=== PATIENT | female | born 1950 | race Caucasian/White ===

== ENCOUNTER 2019-10-13 10:00 | Outpatient (RCR) | payer MEDICARE, OTHER, SELFPAY ==
--- NOTE | 2019-08-09 16:20 | HMH.PTOPEV ---
PT Outpatient Evaluation Rehab PT Outpatient Evaluation Start: 08/09/19 14:32 Freq: Status: Active Protocol: Document 08/09/19 16:07 PHORMERON (Rec: 08/09/19 16:20 PHORNE [id number]) Electronically Signed By Kenan Harding, PT 08/09/19 16:07 Outpatient Therapy Subjective History Subjective History Pt is 68 yowf who presents with c/o 2 falls over the past 2 wks, both at home. 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 She normally uses a straight cane for ambulation, but has now been using RW for safety. She has no reports of dizziness, vertigo, or lightheadedness. She wears glasses which she says need a new prescription. She also has PMH of DM-II and left femur fx with IMN. She c/o difficulty with transfers due to weakness. Chief Complaint Weakness Prior Functional Limitations Walking,Balance Current Functional Limitations Walking,Balance Level of pain today (0-10) 0 Pain scale - at its worst (0-10) 0 Balance Eval Hx of Falls Hx Falls Yes Number in last 6 months 2 Gait/Posture Asssessment General Gait Observation Shuffling Step,Decrease Stride Lngth (R) Hip Observation in Gait Swing Circumducted Ankle/Foot Observation in Gait Stance Decreased Push Off Body Alignment Posture Rigid LE ROM Ankle/Foot Dorsiflexion w/Knee Extended 0 Active Range Motion (degrees) Ankle/Foot Dorsiflexion w/Knee Extended 3 Passive Range (degrees) Rhomberg Feet Together/Eyes open/Stable Surface pass Feet Together/Eyes Closed/Stable Surface pass Feet Together/Eyes open/Unstable Surface fail Feet Together/Eyes Closed/Unstable fail Surface Dynamic Gait Index Test Protocol Gait Level Surface Mild Impairment Query Text: Instructions: Walk at your normal speed from here to the next wilfred (20'). Grading: Wilfred the lowest category that applies. Change in Gait Speed Normal Query Text: Instructions: Begin walking at your normal pace (for 5'), when I tell you go , walk as fast as you can (for 5'). When I tell you slow , walk as slowly as you can (for 5'). Grading: Wilfred the lowest category that applies. Gait w
--- NOTE | 2019-09-15 15:35 | HMH.RHREAS ---
Rehab Reassessment Rehab OP Re-assessment Start: 09/15/19 14:26 Freq: Status: Active Protocol: Document 09/15/19 15:32 GADIEL (Rec: 09/15/19 15:35 PHOMIKAYLA [id number]) Electronically Signed By Kenan Harding, PT 09/15/19 15:32 Rehab Re-assessment Subjective Subjective Pt reports she is feeling a little bit better with her walking. Objective Objective Notes DGI which is 1 pont increase since evaluation. Assessment Progress Assessment Progressing as Expected Assessment Notes Ankle ROM is improving, balance slightly improved, endurance remains low. Patient goals met ST,3,[address] LT,2,3,4,5 Revised Goals none Plan Plan Continue per intial POC. Frequency of Therapy 2x/wk Duration of therapy 8 wks Time and Billing Re-Eval Time 15 Re-Eval Billing Units 1 PHYSICIAN CERTIFICATION: I certify the specified therapy services for Elena Sánchez are required, authorized, and reviewed every 30 days.
== END 2019-10-13 10:05 | disposition home or self-care (01) ==
LOC: PT 10:00
PROVIDERS: Visit Provider Internal Medicine Adolescent Medicine
DX: R27.0 Ataxia, unspecified (principal)
CPT/HCPCS: 97110; 97112; 97140; 97163; 97164

== ENCOUNTER → 2020-08-23 09:37 | Outpatient (CLI) | payer MEDICARE, OTHER, SELFPAY ==
--- NOTE | 2020-08-23 09:56 | XR_ITS ---
PROCEDURE: XR LUMBAR SPINE MIN 4V CLINICAL INDICATION: LOW BACK PAIN AT MULTIPLE SITES COMPARISON: No exams were available for comparison FINDINGS: Fracture of L1 with approximately 40 percent loss of height centrally and anteriorly. This likely is acute to semi acute in age. Suggest clinical correlation for recent trauma and if the patient denies any recent trauma consider follow-up bone scan for additional evaluation. L2 through L5 appear intact. There is moderate disc space narrowing at L5-S1 level. There is minor osteophytic spurring anterior superior border of L4. There is a small ossification sitting between the spinous processes of L3 and L4. There is no pars defect. The SI joints are grossly normal though partially obscured by overlying stool and bowel gas. There is a large amount stool in the cecum and ascending colon. IMPRESSION: Compression fracture of L1 as noted likely posttraumatic but see discussion above. Dictated by: Dr. Kavon Melchor MD 08/23/2020 10:23 Dr. Kavon Melchor MD in [place] 08/23/2020 10:23
== END ==
PROVIDERS: PCP Internal Medicine Adolescent Medicine; Visit Provider Internal Medicine Adolescent Medicine
DX: M54.5 Low back pain (principal)
CPT/HCPCS: 72110

== ENCOUNTER → 2020-08-28 08:41 | Outpatient (POV) | payer MEDICARE, OTHER, SELFPAY ==
[2020-08-28 08:47] VITALS: BP 138/77; PULSE 74; RESP 18; TEMP 36.6; O2SAT 98; BMI 29.5
--- NOTE | 2020-08-28 09:30 | HMH.PMCON ---
Assessment and Plan (1) Compression fracture of L1 lumbar vertebra Status: Acute Category: Medical Code(s): S32.010A - Wedge compression fracture of first lumbar vertebra, initial encounter for closed fracture - Assessment and plan all Dx Assessment and Plan for all problems:: I did discuss kyphoplasty with the patient and her however they would like to take him more conservative approach at this time. We will set up an T12-L1 epidural steroid injection. Patient's not on any anticoagulation therapy. Patient will be braced today. We will also get a DEXA scan. I did discuss with them if they would like to move forward with kyphoplasty that is an option. Follow-up with her after her injection reassess her symptoms at the time she has been instructed to call the office if she has any issues prior to her next appointment. Dr. Salcedo has reviewed this note and agrees with this plan of care. This note was dictated using voice recognition software and may contain errors or omissions HPI - Data of Consult Consult date: 08/28/20 Requesting Physician: Skylar Man APRN Primary Care Provider: Cleve Pichardo MD - Consult Narrative Reason for consult: Back pain History of present illness: Ms. Sánchez is a 69 year old female in today for consultation in regard to her low back pain. Patient has an L1 compression fracture. This is on x-ray. Age is undetermined. Patient does not believe she can tolerate an MRI right now we discussed a kyphoplasty however her and her would like to move forward on a more conservative care plan. We discussed injection therapy and bracing therapy they would like to move forward with this prior to deciding if they would like to get a kyphoplasty. She rates her pain today a 5 out of 10. Any kind increased to but increases pain will rest decreases pain. She does not have any numbness or tingling she has very focal pain in her low back. CC: Skylar Man APRN [facility] History I have reviewed the patient's past medical history: Yes Medical History: Reports:: Aneurysm, Hyperlipidemia, Hypertension, Peripheral Artery Disease Denies:: Cancer, Diabetes Mellitus Type 1, Diabetes Mellitus Type 2, MRSA *Have you ever received a pneumonia vaccine?: No *Have you received a flu vaccine this season?: No Other Medical History: Reports: Arthritis Other Surgeries: Yes: Hysterectomy-Total Amputation: No Fractures: Yes - *Social History Smoking Status: Never smoker Alcohol Intake: never *Occupational Status:: retired Housing: house Household Members: other *Travel in the last 8 weeks: None Family Hx:: Unable to obtain Review of Systems - Review of Systems ROS General: no recent weight change, no fever, no sleep disturbances Respiratory: no cough, no shortness of air, no recurring pulmonary infections Cardiovascular/Peripheral Vascular: No chest pain, No palpitations, no edema, no shortness of breath. Gastrointestinal: no new onset incontinence, normal bowel movements reported Genitourinary: no new onset incontinence Musculoskeletal: Back pain Psychiatric: normal mood/ affect Neurological: [denies new onset weakness in extremities], [denies new onset balance issues] Meds Allergies Allergy/AdvReac Type Severity Reaction Status Date / Time From COMPAZINE Allergy Severe SEVERE Uncoded 10/14/17 14:39 MUSCLE SPASMS THORAZINE Allergy Severe SEVERE Uncoded 10/14/17 14:39 MUSCLE SPASMS Objective Vital signs: Temp Pulse Resp BP Pulse Ox 97.8 F 74 18 138/77 98 08/28/20 08:47 08/28/20 08:47 08/28/20 08:47 08/28/20 08:47 08/28/20 08:47 Narrative: Physical Exam General: Alert and oriented x3, no acute distress, pleasant and cooperative, [on room air] Lungs: Resps E/U, Symmetrical chest expansion, Eyes: PERRL Musculoskeletal: Flexion and extension of lumbar spine somewhat guarded secondary to pain, deep tendon reflexes
== END ==
PROVIDERS: PCP Internal Medicine Adolescent Medicine; Visit Provider Clinical Nurse Specialist Family Health
DX: S32.010A Wedge compression fracture of first lumbar vertebra, initial encounter for closed fracture (principal)
CPT/HCPCS: 99202

== ENCOUNTER 2020-09-01 09:27 | Day surgery (SDC) | payer MEDICARE, OTHER, SELFPAY ==
[2020-09-01 09:37] VITALS: BP 145/78; PULSE 88; RESP 18; TEMP 36.4; O2SAT 97; BMI 30.5
--- NOTE | 2020-09-01 10:22 | HMH.PMPROC ---
- Procedure Date: 09/01/20 Time: 10:22 Anesthesiologist:: Omega Salcedo MD Complications:: None Pre-procedure Diagnosis:: Degenerative disc disease of the lumbar spine with lumbar radiculopathy symptoms. L1 compression fracture Post-procedure Diagnosis:: Same Indications for Procedure:: This patient is a pleasant 69-year-old white female who we are treating for low back pain with a L1 compression fracture. She also has degenerative changes with lumbar spine. We will do a lumbar epidural steroid injection today to help her with her pain symptoms. We will also evaluate her to see if she needs kyphoplasty in the future. We will also follow-up on her DEXA scan. Procedure Details:: Lumbar epidural steroid injection under fluoroscopy Informed consent was obtained and the risk and benefits of the procedure was explained to the patient. The patient was taken to the procedure room. The patient was placed prone on the procedure table. The patient was prepped and draped in sterile fashion. C-arm fluoroscopy was used to view the lumbar spine. Skin and subcutaneous tissues were anesthetized using lidocaine. I placed an 18-gauge epidural needle and advanced into the L1-L2 interspace using fluoroscopic guidance and [id number] to air. After confirmation of needle placement in the epidural space with dye I injected 2 mL of lidocaine 1.5% with Depo-Medrol 80 mg. Patient tolerated the procedure well with no complications. Plan and Disposition:: We will follow-up with her in 2 weeks. Will reevaluate her symptoms at that time. We will follow-up on her DEXA scan to see if she is a candidate for L1 kyphoplasty.
[2020-09-01 10:28] VITALS: BP 133/78; PULSE 85
[2020-09-01 10:29] VITALS: BP 138/78; PULSE 85; RESP 18; O2SAT 98
[2020-09-01 10:43] VITALS: BP 139/78; PULSE 82; RESP 18; O2SAT 97
[2020-09-11 09:59] LABS: POC Glucose,Bedside 66 (70-110)
== END 2020-09-01 10:44 | disposition home or self-care (01) ==
LOC: SC.PAINP 09:28
PROVIDERS: PCP Internal Medicine Adolescent Medicine; Visit Provider Anesthesiology
DX: M51.16 Intervertebral disc disorders with radiculopathy, lumbar region (principal); S32.010A Wedge compression fracture of first lumbar vertebra, initial encounter for closed fracture; I10 Essential (primary) hypertension; E03.9 Hypothyroidism, unspecified; Z88.8 Allergy status to other drugs, medicaments and biological substances; Z79.899 Other long term (current) drug therapy
CPT/HCPCS: 62323; 82962; J1040; Q9966

== ENCOUNTER → 2020-09-06 12:56 | Outpatient (CLI) | payer MEDICARE, OTHER, SELFPAY ==
--- NOTE | 2020-09-06 12:59 | XR_ITS ---
PROCEDURE: XR DEXA AXIAL SKELETON CLINICAL HISTORY: OSTEOPOROSIS, BACK PAIN COMPARISON: No exams were available for comparison FINDINGS: The right hip BMD is 0.645 with a T-score of -1.8. The left forearm BMD is 0.276 with a T-score of -7.0. The lumbar spine BMD is 0.810 with a T-score of -2.2. IMPRESSION: This patient is considered osteoporotic according to the World Health Organization criteria. Fracture risk is high. Treatment is advised. Based on these results a follow-up exam is recommended in 1 year. Dictated by: Vijay Alexander MD 09/07/2020 06:21 Vijay Alexander MD in [place] 09/07/2020 06:21
== END ==
PROVIDERS: PCP Internal Medicine Adolescent Medicine; Visit Provider Clinical Nurse Specialist Family Health
DX: M81.0 Age-related osteoporosis without current pathological fracture (principal); M54.5 Low back pain
CPT/HCPCS: 77080

== ENCOUNTER → 2020-09-08 08:08 | Outpatient (CLI) | payer MEDICARE, OTHER, SELFPAY ==
--- NOTE | 2020-09-08 08:16 | CT_ITS ---
PROCEDURE: CT LUMBAR SPINE WO CON CLINICAL HISTORY: BACK PAIN COMPARISON: No exams were available for comparison TECHNIQUE: Axial images obtained with sagittal and coronal reformats. All CT scans at the facility use one or more dose reduction, viz: automated exposure control, ma/kV adjustment per patient size (including targeted exams where dose is matched to indication, i.e. head), or iterative reconstruction technique. FINDINGS: There is generalized osteopenia. There is a comminuted compression fracture of L1 with approximately 50-60 percent loss of height centrally and anteriorly. There is broad-based retropulsion of the fracture compromising the spinal canal centrally and the right side by approximately 50 percent AP diameter. There is mild gibbus angulation of the curvature of the thoracolumbar spine at this level. Prominent anterior osteophytic spurring at the L2-3 and L3-4 levels. There is moderate disc space narrowing at the L5-S1 level. The transverse processes appear intact. The SI joints are normal. IMPRESSION: Semi acute comminuted compression fracture of L1 with retropulsion compromising the AP diameter of the spinal canal at the L1 level resulting in minor kyphotic curvature of the thoracolumbar junction at this level. Dictated by: Dr. Kavon eMlchor MD 09/08/2020 11:06 Dr. Kavon Melchor MD in [place] 09/08/2020 11:06
== END ==
PROVIDERS: PCP Internal Medicine Adolescent Medicine; Visit Provider Anesthesiology
DX: M54.5 Low back pain (principal)
CPT/HCPCS: 72131

== ENCOUNTER → 2020-09-15 09:42 | Outpatient (POV) | payer MEDICARE, OTHER, SELFPAY ==
[2020-09-15 10:12] VITALS: BP 155/76; PULSE 78; RESP 20; TEMP 36.6; O2SAT 98; BMI 30.6
--- NOTE | 2020-09-15 11:35 | P.CONS_ITS ---
[facility] Pain Management SOAP Note Subjective:: This patient is a pleasant 69-year-old white female who we have been treating for low back pain with compression fracture of the L1 vertebral body. She did have lumbar epidural steroid injection which gave her minimal benefit of her back pain. We did get a CT scan of the lumbar spine which shows L1 comminuted compression fracture with approximately 50 to 60% loss of height. She also does have a DEXA scan which shows osteoporosis which is high risk of fracture. Since she did not get much benefit from the lumbar epidural steroid injection I do believe that she is a candidate for L1 kyphoplasty. She has failed all conservative measures including injections and bracing. She has significant pa in from this acute L1 compression fracture. Objective:: Alert and oriented x3 no acute distress. Patient is tender over lower lumbar spine over the L1 vertebral body. Motor strength of the lower extremities is 5/5. There is no gross sensory deficit. Assessment:: Acute L1 compression fracture with increasing back pain. Plan:: We will plan on L1 kyphoplasty on October 06. She is to continue with her brace in between now and then. [facility] History Medical History: Reports:: Aneurysm, Diabetes Mellitus Type 1, Hyperlipidemia, Hypertension, Peripheral Artery Disease Denies:: Cancer, Diabetes Mellitus Type 2, MRSA, Seizures *Have you ever received a pneumonia vaccine?: Yes *Have you received a flu vaccine this season?: Yes Other Medical History: Reports: Arthritis. Denies: Blood Transfusion Reaction Other Surgeries: Yes: Hysterectomy-Total, Other (CVA stent) Amputation: No Fractures: Yes - *Social History Smoking Status: Never smoker Alcohol Intake: never *Occupational Status:: retired Housing: house Household Members: spouse *Travel in the last 8 weeks: None Family Hx:: Unable to obtain
== END ==
PROVIDERS: PCP Internal Medicine Adolescent Medicine; Visit Provider Anesthesiology
DX: S32.010A Wedge compression fracture of first lumbar vertebra, initial encounter for closed fracture; M81.0 Age-related osteoporosis without current pathological fracture
CPT/HCPCS: 99212

== ENCOUNTER → 2020-10-05 09:22 | Outpatient (CLI) | payer MEDICARE, OTHER, SELFPAY ==
[2020-10-05 09:57] LABS: Basophils # 0.3 K/mm3 (0-0.2); Basophils % 2.9 % (0.1-2.0); Eosinophils # 0.2 K/mm3 (0.0-0.4); Eosinophils % 1.6 % (0.1-12.0); Hematocrit 57.7 % (37.0-47.0); Hemoglobin 17.1 g/dL (12.2-16.2); Lymphocytes # 1.8 K/mm3 (0.7-4.5); Lymphocytes % 17.7 % (10-50); Mean Corpuscular HGB Conc 29.6 g/dL (31.8-35.4); Mean Corpuscular Hemoglobin 29.1 pg (27.0-31.2); Mean Corpuscular Volume 98.4 fl (81-99); Mean Platelet Volume 13.2 fl (7.4-10.4); Monocytes # 0.6 K/mm3 (0.1-1.0); Monocytes % 6.3 % (1.7-9.3); Neutrophils # 7.4 K/mm3 (1.8-7.8); Neutrophils % 74.5 % (37.0-80.0); Platelet Count 342 K/mm3 (142-424); Red Blood Count 5.87 M/mm3 (4.20-5.40); Red Cell Distribution Width 16.9 % (11.5-17.5); White Blood Count 9.9 K/mm3 (4.8-10.8)
[2020-10-05 10:38] LABS: Chloride 100 mmol/L (98-107); Potassium 4.3 mmoL/L (3.5-5.1); Sodium 139 mmol/L (136-145)
[2020-10-05 10:41] LABS: Anion Gap 12.3 mEq/L (5-15); Blood Urea Nitrogen 12 mg/dl (7-17); Calcium 9.9 mg/dl (8.4-10.2); Carbon Dioxide 31 mmol/L (22.0-30.0); Estimated Glomerular Filt Rate 71 ml/min (>60); GFR (African American) 86 ML/MIN (>60); Glucose 65 mg/dl (74-100)
[2020-10-05 10:46] LABS: Coronavirus 19 IgG Antibody Negative (Negative); Coronavirus 19 IgM Antibody Negative (Negative)
== END ==
PROVIDERS: Visit Provider Anesthesiology
DX: Z01.818 Encounter for other preprocedural examination (principal); Z03.818 Encounter for observation for suspected exposure to other biological agents ruled out; M48.56XA Collapsed vertebra, not elsewhere classified, lumbar region, initial encounter for fracture
CPT/HCPCS: 36415; 80048; 85025; 86328

== ENCOUNTER 2020-10-06 12:31 | Day surgery (SDC) | payer MEDICARE, OTHER, SELFPAY ==
[2020-10-04 12:28] VITALS: BMI 30.5
--- NOTE | 2020-10-06 14:03 | SUR.PREOP ---
pt. case was cancelled due to pt. eating at 1130. Case will be rescheduled for a later date per Dr. Salcedo.
== END 2020-10-06 14:03 ==
LOC: OR 12:32
PROVIDERS: PCP Internal Medicine Adolescent Medicine; Visit Provider Anesthesiology
DX: Z53.8 Procedure and treatment not carried out for other reasons (principal); S32.010A Wedge compression fracture of first lumbar vertebra, initial encounter for closed fracture
CPT/HCPCS: 22514

== ENCOUNTER 2020-10-11 05:49 | Day surgery (SDC) | payer MEDICARE, OTHER, SELFPAY ==
[2020-10-11] VITALS (7 sets, daily range): BP systolic 126–197; BP diastolic 58–86; PULSE 55–73; RESP 18; TEMP 6.1–43; O2SAT 95–99; BMI 28.7
[2020-10-11 07:10] LABS: Coronavirus 19 IgG Antibody Negative (Negative); Coronavirus 19 IgM Antibody Negative (Negative)
--- NOTE | 2020-10-11 07:23 | HMH.ANESCL ---
[facility] Anesthesia Checklist - Structural Data Admitted From: Home Planned Operative Procedure/s: kyphoplasty Consent for Planned Operative Procedure(s) Verified: Yes - Additional verifications Anesthesia Reactions: No Hx Blood Transfusions: No Blood Transfusion Reaction: No - Airway Assessment C-Spine Mobility Assessed: Yes TMJ Mobility Assessed: Yes Dentition: Poor Dentition - Neurological Assessment Level of Consciousness: Awake, Alert, Appropriate - Anesthesia Plan Anesthesia Risk discussed: Yes Anesthesia Plan: Verified ASA Class: III Anesthesia Type: MAC [facility] History I have reviewed the patient's past medical history: Yes Medical History: Reports:: Aneurysm, Diabetes Mellitus Type 2, Hyperlipidemia, Hypertension, Peripheral Artery Disease Denies:: Cancer, Diabetes Mellitus Type 1, Internal Pacemaker, MRSA, Seizures *Have you ever received a pneumonia vaccine?: Yes *Have you received a flu vaccine this season?: Yes Other Medical History: Reports: Arthritis. Denies: Blood Transfusion Reaction Anesthesia experience/problems:: none Laterality Cases: Bilateral: Cataract Other Surgeries: Yes: Hysterectomy-Total, Other (CVA stent). No: Pacemaker Amputation: No Fractures: Yes - *Social History Last grade of school completed: 11th or 12th Smoking Status: Never smoker Alcohol Intake: never Substance Use Type: denies use *Occupational Status:: retired Housing: house Household Members: spouse *Travel in the last 8 weeks: None Family Hx:: Unable to obtain
[2020-10-11 07:27] LABS: POC Glucose,Bedside 109 (70-110)
--- NOTE | 2020-10-11 09:07 | HMH.OPNOTE ---
Date of procedure: 10/11/20 Pre-op Diagnosis:: L1 compression fracture acute Post-op Diagnosis:: Same Procedure performed:: L1 kyphoplasty Surgeon:: Omega Salcedo MD [facility] HELPER:: Rafa Little Anesthesia: MAC Estimated blood loss (mL): 1 Clinical Note:: This patient is a pleasant 69-year-old white female who we have been treating for low back pain with a acute compression fracture of the L1 vertebral body. She is approximately 50 to 60% loss of height anteriorly. She also has a DEXA scan which shows osteoporosis she has failed all conservative measures including injections and bracing. She presents for kyphoplasty to the L1 vertebral body today. Operative findings:: None Operative note:: Informed consent was obtained and risks and benefits of the procedure was explained to the patient. Patient was taken to the OR and was placed prone on the procedure table. The patient was prepped and draped in sterile fashion. I used 2 C arms for AP and lateral view of the L1 vertebral body. The skin and subcutaneous tissues were anesthetized using lidocaine. Bone access trochars were placed through the LEFT and RIGHT pedicle and advanced into the vertebral body. After accessing the vertebral body a balloon was inserted first on the LEFT side followed by the RIGHT side with approximately 3 mL of contrast placed in each balloon with good insufflation. After adequate spread of contrast through the balloon, the balloons were deflated and cement was introduced first on the LEFT side with placement of approximately 3-1/2 mL of cement with good spread throughout the vertebral body and then on the RIGHT side was approximately 3 1/2 mL cement with good spread throughout the vertebral body. There was no extrusion of cement through the lateral hurtado, anterior or posterior hurtado. Also no extrusion through superior or inferior hurtado. The bone access trochars were removed and dressing was placed. The patient was taken back to recovery in stable condition. She had good resolution of her back pain 5 minutes after the procedure. She tolerated the procedure well with no complications and was discharged home neurologically intact. Plan and disposition we will follow-up with her in 1 week. Will reevaluate symptoms at that time. She is to continue wearing her brace. Condition: stable Disposition: PACU Complications:: None
== END 2020-10-11 10:05 | disposition home or self-care (01) ==
LOC: OR 05:51
PROVIDERS: PCP Internal Medicine Adolescent Medicine; Visit Provider Anesthesiology
PROC: (CPT 22514; principal; 2020-10-11 07:30)
DX: S32.010A Wedge compression fracture of first lumbar vertebra, initial encounter for closed fracture (principal); E11.9 Type 2 diabetes mellitus without complications; E78.5 Hyperlipidemia, unspecified; I10 Essential (primary) hypertension; Z86.79 Personal history of other diseases of the circulatory system; M19.90 Unspecified osteoarthritis, unspecified site; E03.9 Hypothyroidism, unspecified; M81.0 Age-related osteoporosis without current pathological fracture; Z88.8 Allergy status to other drugs, medicaments and biological substances
CPT/HCPCS: 22514; 82962; 86328; 96374; J3370; Q9966

== ENCOUNTER → 2020-10-23 09:33 | Outpatient (POV) | payer MEDICARE, OTHER, SELFPAY ==
--- NOTE | 2020-10-23 10:03 | HMH.PAINSOAP ---
[facility] Pain Management SOAP Note Subjective:: Patient is a pleasant 70-year-old white female who we are treating for low back pain. Patient has had a kyphoplasty recently. She states her pain has been worse since then she rates it a 10 out of 10. She is difficulty standing and walking. She had epidural injections with no relief. Patient and I had a long discussion about intrathecal therapy. He would like to move forward with this. I discussed the process along with realistic goals. Patient understands. Patient currently is not on any narcotic medications. ROS General: no recent weight change, no fever, no sleep disturbances Respiratory: no cough, no shortness of air, no recurring pulmonary infections Cardiovascular/Peripheral Vascular: No chest pain, No palpitations, no edema, no shortness of breath. Gastrointestinal: no new onset incontinence, normal bowel movements reported Genitourinary: no new onset incontinence Musculoskeletal: Back pain, leg pain Psychiatric: normal mood/ affect Neurological: [denies new onset weakness in extremities], [denies new onset balance issues] Objective:: Physical Exam General: Alert and oriented x3, no acute distress, pleasant and cooperative, [on room air] Lungs: Resps E/U, Symmetrical chest expansion, Eyes: PERRL Musculoskeletal: Flexion and extension of lumbar spine somewhat guarded secondary to pain, deep tendon reflexes normal, strength in upper and lower extremities [5/5], [abnormal gait noted] Neurological: speech clear, 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 We also discussed psychological evaluation. She is understanding of this. She also understands that realistically pain-free is not an option we discussed 50% reduction in symptoms. Patient's been instructed to call the office if she has any issues prior to next appointment. Dr. Salcedo has reviewed this note and agrees with this plan of care. This note was dictated using voice recognition software and may contain errors or omissions [facility] History I have reviewed the patient's past medical history: Yes Medical History: Reports:: Aneurysm, Diabetes Mellitus Type 2, Hyperlipidemia, Hypertension, Peripheral Artery Disease Denies:: Cancer, Diabetes Mellitus Type 1, Internal Pacemaker, MRSA, Seizures *Have you ever received a pneumonia vaccine?: Yes *Have you received a flu vaccine this season?: Yes Other Medical History: Reports: Arthritis. Denies: Blood Transfusion Reaction Other Surgeries: Yes: Hysterectomy-Total, Other (CVA stent). No: Pacemaker Amputation: No Fractures: Yes - *Social History Smoking Status: Never smoker Alcohol Intake: never Substance Use Type: denies use *Occupational Status:: retired Housing: house Household Members: spouse *Travel in the last 8 weeks: None Family Hx:: Unable to obtain
[2020-10-23 10:08] VITALS: BP 125/78; PULSE 74; RESP 18; TEMP 36.3; O2SAT 98; BMI 30.5
== END ==
PROVIDERS: PCP Internal Medicine Adolescent Medicine; Visit Provider Clinical Nurse Specialist Family Health
DX: M51.16 Intervertebral disc disorders with radiculopathy, lumbar region (principal); Z98.890 Other specified postprocedural states
CPT/HCPCS: 99212

== ENCOUNTER → 2020-10-26 10:32 | Outpatient (POV) | payer MEDICARE, OTHER, SELFPAY ==
--- NOTE | 2020-10-26 11:12 | HMH.PAINSOAP ---
[facility] Pain Management SOAP Note Subjective:: Patient is a 70-year-old white female who presents today for follow-up. She has been treated for chronic back pain. She did have a kyphoplasty earlier this month. She says her pain is currently a 4 out of 10. She is continuing to have pain, however, in her left low back area with radiation into her left buttock and left groin. She is accompanied by her son today who provides most of the information for the patient today. Patient has been taking [id number] Tylenol. She does have a history of an aneurysm and is unable to take anti-inflammatories. She is asking for Tylenol 3 today to see if this gives her relief. They did not want to proceed with any type of injective therapy at this time. She has significant pain to the point that she is unable to stand for very long, as the pain in her low back does radiate into her left hip and groin. Is tender over her left SI joint. Review of Systems General: No recent weight changes, no fever, no sleep disturbances Respiratory: No cough, no shortness of air, no recurring pulmonary infections Cardiovascular/peripheral vascular: No chest pain, no palpitations, no edema, no shortness of breath Gastrointestinal: No new onset incontinence, normal bowel movements reported Genitourinary: No new onset incontinence Musculoskeletal: Left low back pain with radiation into left hip and groin Psychiatric: Normal mood/affect Neurological: [Denies weakness in extremities], [denies balance issues] Objective:: Physical exam General: Alert and oriented x3, no acute distress, pleasant and cooperative, [on room air] Lungs: Respirations even and unlabored, symmetrical chest expansion Eyes: PERRL Musculoskeletal: Flexion and extension of lumbar spine somewhat guarded secondary to pain, deep tendon reflexes normal, strength in upper and lower extremities [5/5], [abnormal gait noted], positive Sabi's test, positive compression test, positive distraction test Neurological: Speech clear, green end worker 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 We will order the patient Tylenol 3 1 tablet p.o. 2 times daily. We will see her back in 2 weeks to see if this gives her any relief. Risks and benefits of the medication have been explained to the patient. She has been instructed to contact clinic she has an concerns for next morning. The patient and I specifically discussed risk factors for COVID19. These risks include, but are not limited to age greater than 60, heart or lung disease, diabetes, immunosuppression, and travel. We also discussed NSAIDs may worsen COVID19 infection or symptoms. Patient should not use NSAIDs to treat COVID19 signs or symptoms. Patient was also informed that any type of corticosteroid of any form (oral or injection) will decrease the patient's immune system response and may increase the likelihood of COVID19 infection and symptoms[address] Dr. Salcedo has reviewed this note and agrees with this plan of care. This note was dictated using voice recognition software and make contain errors or omissions. [facility] History I have reviewed the patient's past medical history: Yes Medical History: Reports:: Aneurysm, Diabetes Mellitus Type 2, Hyperlipidemia, Hypertension, Peripheral Artery Disease Denies:: Cancer, Diabetes Mellitus Type 1, Internal Pacemaker, MRSA, Seizures *Have you ever received a pneumonia vaccine?: Yes *Have you received a flu vaccine this season?: Yes Other Medical History: Reports: Arthritis. Denies: Blood Transfusion Reaction Other Surgeries: Yes: Hysterectomy-Total, Other (CVA stent). No: Pacemaker Amputation: No Fractures: Yes - *Social History Smoking Status: Never smoker Alcohol Intake: never Substance Use Type: de
[2020-10-26 12:44] VITALS: BP 140/77; PULSE 77; RESP 18; O2SAT 98; BMI 30.5
== END ==
PROVIDERS: Visit Provider Clinical Nurse Specialist Family Health
DX: M51.16 Intervertebral disc disorders with radiculopathy, lumbar region (principal); M46.1 Sacroiliitis, not elsewhere classified; S32.010A Wedge compression fracture of first lumbar vertebra, initial encounter for closed fracture; Z98.890 Other specified postprocedural states
CPT/HCPCS: 99212

== ENCOUNTER → 2020-11-09 08:32 | Outpatient (POV) | payer MEDICARE, OTHER, SELFPAY ==
--- NOTE | 2020-11-09 09:03 | HMH.PAINSOAP ---
[facility] Pain Management SOAP Note Subjective:: Patient is a pleasant 70-year-old white female who presents today for follow-up. She is been treated for chronic back pain. Patient had a kyphoplasty earlier. Overall doing much better rating her pain a 4 out of 10. Patient would like to just follow-up on an as-needed basis. ROS General: no recent weight change, no fever, no sleep disturbances Respiratory: no cough, no shortness of air, no recurring pulmonary infections Cardiovascular/Peripheral Vascular: No chest pain, No palpitations, no edema, no shortness of breath. Gastrointestinal: no new onset incontinence, normal bowel movements reported Genitourinary: no new onset incontinence Musculoskeletal: Back pain, leg pain Psychiatric: normal mood/ affect Neurological: [denies new onset weakness in extremities], [denies new onset balance issues] Objective:: Physical Exam General: Alert and oriented x3, no acute distress, pleasant and cooperative, [on room air] Lungs: Resps E/U, Symmetrical chest expansion, Eyes: PERRL Musculoskeletal: Flexion and extension of lumbar spine somewhat guarded secondary to pain, deep tendon reflexes normal, strength in upper and lower extremities [5/5], [abnormal gait noted] Neurological: speech clear, medical aide equal, no gross sensory deficits Assessment:: Degenerative disc disease lumbar spine with lumbar radiculopathy symptoms, compression fracture status post kyphoplasty Plan:: We will follow up with the patient on an as-needed basis. Patient's been instructed to call the office if she has any issues prior to next appointment. Dr. Salcedo has reviewed this note and agrees with this plan of care. This note was dictated using voice recognition software and may contain errors or omissions [facility] History I have reviewed the patient's past medical history: Yes Medical History: Reports:: Aneurysm, Diabetes Mellitus Type 2, Hyperlipidemia, Hypertension, Peripheral Artery Disease Denies:: Cancer, Diabetes Mellitus Type 1, Internal Pacemaker, MRSA, Seizures *Have you ever received a pneumonia vaccine?: Yes *Have you received a flu vaccine this season?: Yes Other Medical History: Reports: Arthritis. Denies: Blood Transfusion Reaction Other Surgeries: Yes: Hysterectomy-Total, Other (CVA stent). No: Pacemaker Amputation: No Fractures: Yes - *Social History Smoking Status: Never smoker Alcohol Intake: never Substance Use Type: denies use *Occupational Status:: other Housing: house Household Members: spouse *Travel in the last 8 weeks: None Family Hx:: Unable to obtain
[2020-11-09 09:25] VITALS: BP 142/71; PULSE 84; RESP 18; TEMP 36.6; O2SAT 98; BMI 30.5
== END ==
PROVIDERS: PCP Internal Medicine Adolescent Medicine; Visit Provider Clinical Nurse Specialist Family Health
DX: M51.16 Intervertebral disc disorders with radiculopathy, lumbar region (principal); S32.010A Wedge compression fracture of first lumbar vertebra, initial encounter for closed fracture; Z98.890 Other specified postprocedural states
CPT/HCPCS: 99212; G0463

== ENCOUNTER → 2021-02-14 10:31 | Outpatient (CLI) | payer MEDICARE, OTHER, SELFPAY ==
[2021-02-14 12:17] LABS: Alanine Aminotransferase 18 U/L (12-78); Albumin Level 3.4 g/dl (3.5-5.0); Albumin/Globulin Ratio 1.1 (1.1-1.8); Alkaline Phosphatase 178 U/L (38-126); Anion Gap 6.4 mEq/L (5-15); Aspartate Amino Transferase 30 U/L (14-36); Bilirubin,Total 0.5 mg/dl (0.2-1.3); Blood Urea Nitrogen 15 mg/dl (7-17); Calcium 9.2 mg/dl (8.4-10.2); Carbon Dioxide 29 mmol/L (22.0-30.0); Chloride 105 mmol/L (98-107); Estimated Glomerular Filt Rate 82 ml/min (>60); GFR (African American) 100 ML/MIN (>60); Globulin 3.1 g/dL (1.3-3.2); Glucose 56 mg/dl (74-100); Potassium 4.4 mmoL/L (3.5-5.1); Sodium 136 mmol/L (136-145); Total Protein,Serum 6.5 g/dl (6.3-8.2)
[2021-02-14 12:30] LABS: Hemoglobin A1C 5.1 % (4.0-6.0)
[2021-02-16 08:53] LABS: Thyroid Stimulating Hormone 3.94 uIU/mL (0.465-4.68)
== END ==
PROVIDERS: Visit Provider Internal Medicine Adolescent Medicine
DX: E11.9 Type 2 diabetes mellitus without complications (principal); E03.9 Hypothyroidism, unspecified; R19.7 Diarrhea, unspecified; Z79.4 Long term (current) use of insulin
CPT/HCPCS: 36415; 80053; 83036; 83735; 84436; 84443; 84479

== ENCOUNTER → 2021-02-15 09:53 | Outpatient (CLI) | payer MEDICARE, OTHER, SELFPAY ==
[2021-02-15 09:57] LABS: Adenovirus F 40/41, stool Not Detected (NotDetected); Astrovirus Not Detected (NotDetected); Campylobacter Not Detected (NotDetected); Cryptosporidium Not Detected (NotDetected); Cyclospora Cayetanesis Not Detected (NotDetected); Entamoeba histolytica Not Detected (NotDetected); Enteroaggregative E coli Not Detected (NotDetected); Enteropathogenic E coli Not Detected (NotDetected); Enterotoxigenic E coli Not Detected (NotDetected); Giardia lamblia Not Detected (NotDetected); Norovirus Not Detected (NotDetected); Plesimonas Shigalloides, PCR Not Detected (NotDetected); Rotavirus A Not Detected (NotDetected); Salmonella, PCR Not Detected (NotDetected); Sapovirus Not Detected (NotDetected); Shiga-like toxin E coli Not Detected (NotDetected); Shigella Enterovasive E coli Not Detected (NotDetected); Vibrio Cholerae Not Detected (NotDetected); Vibrio, PCR Not Detected (NotDetected); Yersinia Entercolitica, PCR Not Detected (NotDetected)
[2021-02-15 17:43] LABS: Clostridium Difficile A/B, PCR Detected (NotDetected)
== END ==
PROVIDERS: Visit Provider Internal Medicine Adolescent Medicine
DX: R19.7 Diarrhea, unspecified (principal); A04.72 Enterocolitis due to Clostridium difficile, not specified as recurrent
CPT/HCPCS: 87506

== ENCOUNTER → 2021-05-21 11:03 | Outpatient (CLI) | payer MEDICARE, OTHER, SELFPAY ==
[2021-05-21 11:44] LABS: Basophils # 0.1 K/mm3 (0-0.2); Basophils % 0.6 % (0.1-2.0); Eosinophils # 0.2 K/mm3 (0.0-0.4); Eosinophils % 2.2 % (0.1-12.0); Hematocrit 49.1 % (37.0-47.0); Lymphocytes # 1.5 K/mm3 (0.7-4.5); Lymphocytes % 16.6 % (10-50); Mean Corpuscular HGB Conc 32.6 g/dL (31.8-35.4); Mean Corpuscular Hemoglobin 28.4 pg (27.0-31.2); Mean Corpuscular Volume 87.3 fl (81-99); Mean Platelet Volume 7.6 fl (7.4-10.4); Monocytes # 0.5 K/mm3 (0.1-1.0); Monocytes % 5.4 % (1.7-9.3); Neutrophils % 75.3 % (37.0-80.0); Platelet Count 292 K/mm3 (142-424); Red Blood Count 5.63 M/mm3 (4.20-5.40); Red Cell Distribution Width 13.6 % (11.5-17.5); White Blood Count 9.3 K/mm3 (4.8-10.8)
[2021-05-21 12:58] LABS: Chloride 101 mmol/L (98-107)
[2021-05-21 12:59] LABS: Potassium 4.4 mmoL/L (3.5-5.1); Sodium 139 mmol/L (136-145)
[2021-05-21 13:01] LABS: Alanine Aminotransferase 14 U/L (12-78); Anion Gap 13.4 mEq/L (5-15); Aspartate Amino Transferase 23 U/L (14-36); Blood Urea Nitrogen 19 mg/dl (7-17); Carbon Dioxide 29 mmol/L (22.0-30.0); Estimated Glomerular Filt Rate 82 ml/min (>60); GFR (African American) 100 ML/MIN (>60)
[2021-05-21 13:02] LABS: Albumin Level 4.5 g/dl (3.5-5.0); Albumin/Globulin Ratio 1.4 (1.1-1.8); Alkaline Phosphatase 158 U/L (38-126); Bilirubin,Total 0.6 mg/dl (0.2-1.3); Calcium 9.6 mg/dl (8.4-10.2); Chol/HDL Ratio 3.9 (1-3.5); Cholesterol 138 mg/dl (140-200); Globulin 3.2 g/dL (1.3-3.2); Glucose 122 mg/dl (74-100); HDL Cholesterol 35 mg/dl (40-60); Total Protein,Serum 7.7 g/dl (6.3-8.2); Triglycerides 100 mg/dl (30-150); VLDL Cholesterol 20 mg/dL (0-40)
[2021-05-21 13:14] LABS: Direct LDL Cholesterol 76.21 mg/dL (100-129)
[2021-05-21 13:34] LABS: Thyroid Stimulating Hormone 2.61 uIU/mL (0.465-4.68)
== END ==
PROVIDERS: Visit Provider Internal Medicine Adolescent Medicine
DX: E11.9 Type 2 diabetes mellitus without complications (principal); E03.9 Hypothyroidism, unspecified; E78.5 Hyperlipidemia, unspecified; Z79.4 Long term (current) use of insulin
CPT/HCPCS: 36415; 80053; 80061; 83036; 84443; 85025

== ENCOUNTER → 2021-08-22 11:10 | Outpatient (CLI) | payer MEDICARE, OTHER, SELFPAY ==
[2021-08-22 11:26] LABS: Basophils # 0.1 K/mm3 (0-0.2); Basophils % 0.7 % (0.1-2.0); Eosinophils # 0.2 K/mm3 (0.0-0.4); Eosinophils % 2.8 % (0.1-12.0); Hematocrit 52.7 % (37.0-47.0); Lymphocytes # 1.4 K/mm3 (0.7-4.5); Lymphocytes % 16.4 % (10-50); Mean Corpuscular HGB Conc 32.3 g/dL (31.8-35.4); Mean Corpuscular Hemoglobin 29.7 pg (27.0-31.2); Mean Platelet Volume 7.6 fl (7.4-10.4); Monocytes # 0.5 K/mm3 (0.1-1.0); Monocytes % 5.5 % (1.7-9.3); Neutrophils # 6.3 K/mm3 (1.8-7.8); Neutrophils % 74.6 % (37.0-80.0); Platelet Count 301 K/mm3 (142-424); Red Blood Count 5.73 M/mm3 (4.20-5.40); Red Cell Distribution Width 13.9 % (11.5-17.5); White Blood Count 8.5 K/mm3 (4.8-10.8)
[2021-08-22 15:03] LABS: Hemoglobin A1C 6.5 % (4.0-6.0)
[2021-08-22 16:56] LABS: Alanine Aminotransferase 13 U/L (12-78); Albumin Level 4.1 g/dl (3.5-5.0); Albumin/Globulin Ratio 1.2 (1.1-1.8); Alkaline Phosphatase 129 U/L (38-126); Anion Gap 16.1 mEq/L (5-15); Aspartate Amino Transferase 23 U/L (14-36); Bilirubin,Total 0.4 mg/dl (0.2-1.3); Blood Urea Nitrogen 18 mg/dl (7-17); Calcium 9.8 mg/dl (8.4-10.2); Carbon Dioxide 27 mmol/L (22.0-30.0); Chloride 103 mmol/L (98-107); Cholesterol 135 mg/dl (140-200); Estimated Glomerular Filt Rate 82 ml/min (>60); GFR (African American) 100 ML/MIN (>60); Globulin 3.3 g/dL (1.3-3.2); Glucose 116 mg/dl (74-100); HDL Cholesterol 34 mg/dl (40-60); Potassium 5.1 mmoL/L (3.5-5.1); Sodium 141 mmol/L (136-145); Total Protein,Serum 7.4 g/dl (6.3-8.2); Triglycerides 83 mg/dl (30-150); VLDL Cholesterol 17 mg/dL (0-40)
[2021-08-22 17:26] LABS: Thyroid Stimulating Hormone 1.56 uIU/mL (0.465-4.68)
== END ==
PROVIDERS: Visit Provider Internal Medicine Adolescent Medicine
DX: E11.9 Type 2 diabetes mellitus without complications (principal); E03.9 Hypothyroidism, unspecified; E78.5 Hyperlipidemia, unspecified; Z79.4 Long term (current) use of insulin
CPT/HCPCS: 36415; 80053; 80061; 83036; 84443; 85025

== ENCOUNTER → 2022-06-13 14:44 | Outpatient (CLI) | payer MEDICARE, OTHER, SELFPAY ==
--- NOTE | 2022-06-13 14:55 | XR_ITS ---
FINAL REPORT CLINICAL HISTORY: MID BACK PAIN FINDINGS: LUMBAR SPINE 5 views of the lumbar spine were obtained. There is a moderate chronic L1 compression fracture with changes of kyphoplasty. There is no evidence of acute fracture. The vertebral alignment is normal. There are moderate degenerative changes with osteophytes. There are mild vascular calcifications. IMPRESSION: Moderate degenerative changes with no acute bony abnormality. Reviewed, Interpreted and Dictated by Andre Hernandez III, MD Transcribed by Lluvia Young Authenticated and [facility]
--- NOTE | 2022-06-13 14:55 | XR_ITS ---
FINAL REPORT CLINICAL HISTORY: upper back pain FINDINGS: THORACIC SPINE Three views were obtained. There is no acute fracture. There is a moderate chronic compression fracture at L1 with changes of kyphoplasty. There is kyphosis centered at L1. There is no malalignment. There are mild and moderate degenerative changes with osteophytes. There is no soft tissue abnormality. IMPRESSION: Mild and moderate degenerative changes with no acute bony abnormality. Reviewed, Interpreted and Dictated by Andre Hernandez III, MD Transcribed by Lluvia Young Authenticated and [facility]
== END ==
PROVIDERS: PCP Internal Medicine Adolescent Medicine; Visit Provider Nurse Practitioner Family
DX: M54.6 Pain in thoracic spine (principal); M54.50 Low back pain, unspecified; M81.0 Age-related osteoporosis without current pathological fracture; Z87.81 Personal history of (healed) traumatic fracture
CPT/HCPCS: 72072; 72110

== ENCOUNTER → 2022-11-07 12:43 | Outpatient (CLI) | payer MEDICARE, OTHER, SELFPAY ==
--- NOTE | 2022-11-07 12:46 | MM_ITS ---
PROCEDURE INFORMATION: Exam: MG Bilateral Screening 3D Mammography Exam date and time: 11/07/2022 12:40 PM Age: 72 years old Clinical indication: Screening examination TECHNIQUE: Imaging protocol: Bilateral Screening tomosynthesis and 2D mammography including computer-aided detection (CAD) when performed. COMPARISON: No relevant prior studies available. FINDINGS: MAMMOGRAPHY: Breast composition: There are scattered areas of fibroglandular density. Mass: None. Architectural distortion: None. Calcifications: No suspicious calcifications. Asymmetric density: None. Skin thickening: None. Axillary adenopathy: None. IMPRESSION: No mammographic evidence of malignancy. Annual screening is recommended unless otherwise clinically indicated. ASSESSMENT: BI-RADS Category 1: Negative
== END ==
PROVIDERS: PCP Internal Medicine Adolescent Medicine; Visit Provider Internal Medicine Adolescent Medicine
DX: Z12.31 Encounter for screening mammogram for malignant neoplasm of breast (principal)
CPT/HCPCS: 77063; 77067

== ENCOUNTER 2023-11-10 13:06 | Outpatient (CLI) | payer MEDICARE, OTHER, SELFPAY ==
--- NOTE | 2023-11-10 13:11 | MM_ITS ---
PROCEDURE INFORMATION: Exam: MG Bilateral Screening 3D Mammography Exam date and time: 11/10/2023 1:00 PM Age: 73 years old Clinical indication: Screening. No family history of breast cancer. TECHNIQUE: Imaging protocol: Bilateral Screening tomosynthesis and 2D mammography including computer-aided detection (CAD) when performed. The technologist's notes document that best images possible were obtained to the patient's abilities. COMPARISON: MG MM DIG SCREENING MAMM BI W/CAD 11/07/2022 12:40 PM FINDINGS: MAMMOGRAPHY: Breast composition: There are scattered areas of fibroglandular density. Mass: None. Architectural distortion: None. Calcifications: No suspicious calcifications. Asymmetric density: No developing asymmetry. Skin thickening: None. Axillary adenopathy: None. IMPRESSION: No mammographic evidence of malignancy. Annual screening is recommended unless otherwise clinically indicated. ASSESSMENT: BI-RADS Category 1: Negative
== END 2023-11-10 23:59 ==
LOC: RAD 13:06
PROVIDERS: PCP Internal Medicine Adolescent Medicine; Visit Provider Internal Medicine Adolescent Medicine
DX: Z12.31 Encounter for screening mammogram for malignant neoplasm of breast (principal)
CPT/HCPCS: 77063; 77067

== ENCOUNTER 2024-05-04 11:16 | Outpatient (CLI) | payer MEDICARE, OTHER, SELFPAY ==
--- NOTE | 2024-05-04 11:22 | XR_ITS ---
FINAL REPORT CLINICAL HISTORY: PNEUMONITIS FINDINGS: TWO-VIEW CHEST The heart size is normal. The mediastinum is normal. There are mild left base opacities, favor atelectasis. There are multiple compression fractures of the thoracic spine. There is kyphoplasty in the lower thoracic spine. There is no pneumothorax. IMPRESSION: Left base opacities, favor atelectasis. Reviewed, Interpreted and Dictated by Andre Hernandez III, MD Transcribed by Graciela Abreu Authenticated and [facility]
== END 2024-05-04 23:59 | disposition home or self-care (01) ==
LOC: RAD 11:17
PROVIDERS: PCP Internal Medicine Adolescent Medicine; Visit Provider Internal Medicine Adolescent Medicine
DX: J98.4 Other disorders of lung (principal)
CPT/HCPCS: 71046

== ENCOUNTER 2024-05-19 09:51 | Outpatient (CLI) | payer MEDICARE, OTHER, SELFPAY ==
--- NOTE | 2024-05-19 09:53 | CT_ITS ---
FINAL REPORT TECHNIQUE: Axial CT without IV contrast administration. Sagittal and coronal reformatted images were obtained and reviewed. This study was performed with techniques to keep radiation doses as low as reasonably achievable (ALARA). Individualized dose reduction techniques using automated exposure control or adjustment of mA and/or kV according to the patient's size were employed. CLINICAL HISTORY: SCARRING OF THE LUNG. Abnormal x-ray FINDINGS: There is a 9 mm right upper lobe nodule well seen on image 31. Moderate atelectasis with hypoinflation is seen involving the lower lobes. There is no evidence of acute pneumonia. No pleural or pericardial effusion is seen. No adenopathy or mass lesion is present. IMPRESSION: No evidence of active pneumonia. Atelectasis related to severe hypoinflation. Incidental right upper lobe possibly partially calcified nodule. Recommend follow-up CT in 6 months. Reviewed, Interpreted and Dictated by Kaylen Vega MD Transcribed by Graciela Abreu Authenticated and [facility]
== END 2024-05-19 23:59 | disposition home or self-care (01) ==
LOC: RAD 09:51
PROVIDERS: PCP Internal Medicine Adolescent Medicine; Visit Provider Internal Medicine Adolescent Medicine
DX: J98.4 Other disorders of lung (principal); R91.8 Other nonspecific abnormal finding of lung field
CPT/HCPCS: 71250